=== PATIENT | female | born 1990 | race Caucasian/White ===

== ENCOUNTER 2018-12-09 13:49 | Emergency (ER) | payer OTHER ==
[~2018-12-09] VITALS: Ht 167.6 cm; Wt 12.1 kg
[~2018-12-09 13:49] MED LIST: CLIN-96 PO; FAMO-128 PO; HYDR-4383 PO; NAPR-996 PO; ONDA4TAB6 PO; ONDA8TAB9 PO; PANT-47 PO
[2018-12-09 14:04] VITALS: BP 148/85
[2018-12-09] MEDS ORDERED: TRAM50TA2 PO (15:27)
== END 2018-12-09 16:10 | disposition home or self-care (01) ==
LOC: ER 13:50
DX: S92.532A Displaced fracture of distal phalanx of left lesser toe(s), initial encounter for closed fracture (principal); G89.29 Other chronic pain; Z90.49 Acquired absence of other specified parts of digestive tract; Z90.89 Acquired absence of other organs; Z91.012 Allergy to eggs; Z88.8 Allergy status to other drugs, medicaments and biological substances; Z79.899 Other long term (current) drug therapy; W22.8XXA Striking against or struck by other objects, initial encounter; Y93.01 Activity, walking, marching and hiking; Y92.89 Other specified places as the place of occurrence of the external cause; Y99.8 Other external cause status
CPT/HCPCS: 73630; 99283

== ENCOUNTER 2018-12-19 11:02 | Emergency (ER) | payer OTHER ==
[~2018-12-19] VITALS: Ht 172.7 cm; Wt 110.0 kg
[~2018-12-19 11:02] MED LIST changes: +TRAM50TA2 PO
[2018-12-19 11:07] VITALS: BP 143/98
== END 2018-12-19 12:14 | disposition home or self-care (01) ==
LOC: ER 11:02
DX: S92.532D Displaced fracture of distal phalanx of left lesser toe(s), subsequent encounter for fracture with routine healing (principal); G89.29 Other chronic pain; Z90.49 Acquired absence of other specified parts of digestive tract; Z88.6 Allergy status to analgesic agent; Z91.012 Allergy to eggs; Z79.899 Other long term (current) drug therapy; W22.8XXD Striking against or struck by other objects, subsequent encounter
CPT/HCPCS: 99281

== ENCOUNTER 2025-01-01 12:32 | Emergency (ER) | payer OTHER ==
[~2025-01-01] VITALS: Ht 167.6 cm; Wt 84.1 kg
[~2025-01-01 12:32] MED LIST changes: -CLIN-96 PO; +CLIN-97 PO; +NAPR-1168 PO; -NAPR-996 PO; -TRAM50TA2 PO
[2025-01-01 12:50] VITALS: BP 139/92; PULSE 78; RESP 16; TEMP 98; O2SAT 95
--- NOTE | 2025-01-01 13:05 | Physician Documentation ---
History of Present Illness Chief Complaint: Abdominal Pain Stated Complaint: CONSTIPATION Primary Medical Doctor: Janet [facility] This is a 34-year-old female who presents with two weeks of constipation without vomiting or fever, patient reports last bowel movement was yesterday however it was very small, patient reports she is not passing much gas though is still passing gas. Patient describes abdominal pain as pressure and bloating. Medication Reconciliation Allergies: Coded Allergies: prednisone (Verified Allergy, Unknown, 12/09/18) egg (Verified Adverse Reaction, Unknown, n/v/belching, 04/14/15) Scheduled Bisacodyl (Bisacodyl), 1 SUPP RC DAILY Clindamycin HCL* (Clindamycin HCL*), 1 CAP PO Q6H Famotidine (Pepcid), 1 TABLET PO BID Ondansetron Hcl (Zofran), 1 TABLET PO Q8H Pantoprazole Sodium (PROTONIX tablet), 1 TABLET PO DAILY Polyethylene Glycol 3350 (Miralax), 17 GM PO DAILY Scheduled PRN Hydrocodone/Acetaminophen ([place] 5-325 Tablet), 1 TABLET PO TID PRN for pain Metoclopramide HCl (Reglan), 1 TAB PO Q8H PRN for nausea/vomiting Naproxen (Naproxen), 1 TABLET PO BID PRN for pain Ondansetron (Zofran Odt), 8 MG PO TID PRN PRN for nausea/vomiting Ondansetron Hcl (Zofran), 1 TABLET PO Q6H PRN for nausea/vomiting Past Medical History Past Medical History: Chronic Back Pain Past Surgical History: appendectomy, tonsillectomy Alcohol Use: None Drug Use: none Lives with: Father Occupation: student Review of Systems ROS Constipation and abdominal pain as stated above in the HPI, otherwise all systems are reviewed and negative. Physical Exam Vital Signs: Temperature: 98.0, Heart Rate: 78, Respiratory Rate: 16, BP: 139/92, Pulse Oximetry: 95, Weight: 84.090 Oxygen Flow Rate: 0 Physical Exam VITALS: Reviewed and as above. GENERAL: Alert, nontoxic appearing, no apparent distress. RESPIRATORY: No increased work of breathing, no respiratory distress, speaking in full clear sentences, clear lung sounds in all [place] CV: Regular rate and rhythm no murmur GI: Mild periumbilical tenderness to palpation otherwise nontender, soft, nondistended, no rebound, no guarding, bowel sounds present, no abdominal ecchymosis Progress Results/Orders Results/Orders Orders - NAMAN MORALES [employer] Urinalysis, Cult If Indicated (01/01/25 12:56) Hcg, Ur Ql (01/01/25 12:56) Cbc/Diff (01/01/25 12:56) BMP (01/01/25 12:56) Lipase (01/01/25 12:56) CMP (01/01/25 12:56) Vital Signs 01/01/25 12:50 Temp 98.0 Pulse 78 Resp 16 B/P (MAP) 139/92 Pulse Ox 95 O2 Flow Rate 0 EKG/XRAY/CT/US/VASC/MRI Abdominal X-Ray : Additional Comment Exam: DI ABDOMEN,SINGLE VIEW(KUB) Indication: Constipation and Abd Pain Comparison: None Technique: 2 radiographic views of the abdomen. Findings: Moderate volume colonic stool. Nonobstructive bowel gas pattern noted. There is no definite evidence for pneumoperitoneum. No abnormal calcifications noted. Impression: Nonobstructive bowel gas pattern noted. Moderate volume colonic stool. Electronically Signed by:JUAN HAGAN MD Date & Time: 01/01/25 8008 Dictated by: JUAN HAGAN MD Dictation date and time: 01/01/25 9305 I have reviewed and agree with the radiology report. I have reviewed and interpreted the imaging as: No air-fluid levels to suggest bowel obstruction Medical Decision Making Findings 34-year-old female presented with two weeks of constipation and mild periumbilical abdominal pain described as pressure and distention, physical exam did not demonstrate significant abdominal pain and no peritoneal signs, it is reassuring that bowel sounds were present, abdominal x-ray did not demonstrate evidence of bowel obstruction though was consistent with large stool burden and constipation. Patient reported feeling otherwise well and did reassuringly report having some passage of gas. I have low suspicion for bowel obstruction or other intra abdominal process, I suspect symptoms are from constipation. With shared decision-making patient would like to attempt treatment of constipation in the comfort of her own home, patient will be provided prescription for MiraLax and suppositories. As patient had reported some nausea an antiemetic with prokinetic properties was prescribed. Patient is otherwise well-appearing with benign physical exam and appropriate for outpatient follow up. Patient provided and understood careful return precautions. Patient provided and understood home care instructions and follow up instructions. Additionally reassuring patient does report follow up with primary care provider in the next week. Differential Dx:Considerations: Include: Appendicitis, Bowel obstruction, Cholangitis, Cholelithasis, Constipation, Diverticular disease, Gastritis/PUD, Gastroenteritis, Inflammatory BD, Ischemic bowel, Ovarian cyst/torsion, Urinary obstruction, Urinary tract infection, Urolithiasis Departure Disposition: HOME / SELF CARE / HOMELESS Impression: Primary Impression: Abdominal pain Qualified Codes: R10.33 - Periumbilical pain Condition: Improved Discharge Instructions: Constipation, Adult Additional Instructions: Please use the prescribed medications until you began having regular bowel movements, I recommend adding a fiber supplement such as Metamucil and increasing your fluid intake as well. You may use the prescribed Reglan as needed for nausea. Please follow up with your primary care provider in the next few days. Please return to the emergency department for any new or worsening concerning symptoms. Referrals: NO PRIMARY CARE PROVIDER (PCP) Prescriptions Metoclopramide HCl (Reglan) 10 Mg Tablet 1 TAB PO Q8H PRN for nausea/vomiting for 10 Days, #30 TAB 0 Refills before food and bedtime Prov: NAMAN MORALES 01/01/25 Bisacodyl (Bisacodyl) 10 Mg Supp.rect 1 SUPP RC DAILY for constipation for 4 Days, #4 SUPP 0 Refills Prov: NAMAN MORALES 01/01/25 Polyethylene Glycol 3350 (Miralax) 17 Gram/Dose Powder 17 GM PO DAILY for constipation for 7 Days, #119 GM 0 Refills dissolve in water Prov: NAMAN MORALES 01/01/25 Education Educated: Patient Educated regarding: diagnosis, treatment, prognosis, need for follow up Signature Scribe Signature: No scribe Attestation: The note accurately reflects work and decisions made by me.KATHERINE Isbell 01/01/25 21:26 NAMAN MORALES Jan 01, 2025 13:04
[2025-01-01 13:41] LABS: BASOPHILS % (AUTO) 0.6 % (0-1); EOSINOPHILS # (AUTO) 0.1 X10'3 (0-0.9); EOSINOPHILS % (AUTO) 1.1 % (0-6); HEMATOCRIT 43.5 % (35.0-45.0); HEMOGLOBIN 14.6 g/dl (12.0-16.0); LYMPHOCYTES # (AUTO) 2.5 X10'3 (1.1-4.8); LYMPHOCYTES % (AUTO) 37.5 % (21-51); MEAN CORPUSCULAR HEMOGLOBIN 28.7 PG (27.0-31.0); MEAN CORPUSCULAR HGB CONC 33.5 g/dL (33.0-36.5); MEAN CORPUSCULAR VOLUME 85.5 FL (78-98); MEAN PLATELET VOLUME 7.6 FL (7.4-10.4); MONOCYTES # (AUTO) 0.3 X10'3 (0-0.9); MONOCYTES % (AUTO) 5.3 % (2-12); NEUTROPHILS # (AUTO) 3.7 X10'3 (1.8-7.7); NEUTROPHILS % (AUTO) 55.5 % (42-75); PLATELET COUNT 291 X10'3 (140-440); RED BLOOD COUNT 5.08 X10'6 (4.20-5.60); RED CELL DISTRIBUTION WIDTH 14.5 % (11.5-14.5); WHITE BLOOD COUNT 6.6 X10'3 (4.5-11.0)
[2025-01-01 13:46] LABS: BILIRUBIN,URINE NEGATIVE (Neg); CLARITY,URINE CLEAR (Clear); COLOR,URINE YELLOW (Yellow); GLUCOSE, URINE NEGATIVE (Neg); KETONES,URINE NEGATIVE (Neg); LEUKOCYTE ESTERASE ,URINE NEGATIVE (Neg); NITRITES, URINE NEGATIVE (Neg); OCCULT BLOOD,URINE NEGATIVE (Neg); PH,URINE 6.5 (4.8-8.0); PROTEIN,URINE NEGATIVE (Neg); URINE HCG NEGATIVE (NEG); UROBILINOGEN,URINE 0.2 E.U/dL (0.2-1.0)
[2025-01-01 13:48] LABS: UA COLLECTION TYPE CLN CATCH MIDSTREAM
[2025-01-01 14:10] LABS: ALANINE AMINOTRANSFERASE 38 U/L (12-78); ALBUMIN/GLOBULIN RATIO 1.1 (1.1-1.5); ALKALINE PHOSPHATASE 88 IU/L (46-116); ANION GAP 8 (8-16); ASPARTATE AMINO TRANSFERASE 23 U/L (10-37); BILIRUBIN,TOTAL 0.7 MG/DL (0.1-1.0); BLOOD UREA NITROGEN 11 MG/DL (7-18); BUN/CREATININE RATIO 15.9 (10.0-20.0); CALCIUM 8.7 MG/DL (8.5-10.1); CHLORIDE 105 MMOL/L (99-107); CREATININE 0.69 MG/DL (0.40-0.90); GLUCOSE 87 MG/DL (70-104); LIPASE 37 U/L (16-77); POTASSIUM 3.9 MMOL/L (3.5-5.1); SODIUM 142 MMOL/L (135-145); TOTAL CARBON DIOXIDE 28.6 MMOL/L (24-32); TOTAL PROTEIN 7.5 G/DL (6.4-8.2); eCRCL 109 ML/MIN; eGFR > 90 ML/MIN
[2025-01-01] MEDS ORDERED: POLY119P2 PO (14:59)
[2025-01-01] MEDS ORDERED: BISA10SU11 RC (14:59)
--- NOTE | 2025-01-01 15:11 | RADIOLOGY REPORT ---
Exam: DI ABDOMEN,SINGLE VIEW(KUB) Indication: Constipation and Abd Pain Comparison: None Technique: 2 radiographic views of the abdomen. Findings: Moderate volume colonic stool. Nonobstructive bowel gas pattern noted. There is no definite evidence for pneumoperitoneum. No abnormal calcifications noted. Impression: Nonobstructive bowel gas pattern noted. Moderate volume colonic stool.
[2025-01-01] MEDS ORDERED: METO-292 PO (15:38)
[2025-01-01] MEDS: metoclopramide 10mg tablet PO ONE (15:41)
== END 2025-01-01 15:47 | disposition home or self-care (01) ==
LOC: ER 12:33
DX: K59.00 Constipation, unspecified (principal); Z88.8 Allergy status to other drugs, medicaments and biological substances; Z90.49 Acquired absence of other specified parts of digestive tract; Z90.89 Acquired absence of other organs
CPT/HCPCS: 36415; 74018; 80053; 81003; 81025; 83690; 85025; 99284

== ENCOUNTER 2025-03-23 10:10 | Emergency (ER) | payer OTHER ==
[~2025-03-23] VITALS: Ht 167.6 cm; Wt 91.8 kg
[~2025-03-23 10:10] MED LIST changes: +BISA10SU11 RC; +CLIN-224 PO; -CLIN-97 PO; +METO-292 PO; +POLY119P2 PO
[2025-03-23 10:34] VITALS: BP 154/104; PULSE 59; RESP 18; TEMP 97.3; O2SAT 97
--- NOTE | 2025-03-23 11:29 | RADIOLOGY REPORT ---
EXAM: DI FOOT, COMPLETE (3VW MIN) CLINICAL INDICATION: FOOT PAIN TECHNIQUE: DI FOOT, COMPLETE (3VW MIN) Comparison: None FINDINGS/IMPRESSION: There is no evidence of acute fracture or dislocation. The visualized joint space is well maintained. The alignment is anatomical. There is no radiopaque foreign body.
--- NOTE | 2025-03-23 13:03 | Physician Documentation ---
History of Present Illness ~ Chief Complaint: Foot pain Stated Complaint: R FOOT PAIN Time Seen by MD: 11:23 OK to notify your PCP?: Yes Primary Medical Doctor: [facility] Source: patient, RN/ HPI Patient is seen today with complaints of pain of her left foot. She states the pain is located on the plantar surface of her left foot at the MTP joint of the small toe. Patient states pain started few weeks ago and she thought she may have gotten something stuck in there she has been trying to dig out it without any relief. She has no other concern or complaint at this time. Tetanus witin 5 years: Yes Medication Reconciliation Allergies: Coded Allergies: prednisone (Verified Allergy, Unknown, 03/23/25) egg (Verified Adverse Reaction, Unknown, n/v/belching, 03/23/25) Scheduled Bisacodyl (Bisacodyl), 1 SUPP RC DAILY Clindamycin HCL* (Clindamycin HCL*), 1 CAP PO Q6H Famotidine (Pepcid), 1 TABLET PO BID Ondansetron Hcl (Zofran), 1 TABLET PO Q8H Pantoprazole Sodium (PROTONIX tablet), 1 TABLET PO DAILY Polyethylene Glycol 3350 (Miralax), 17 GM PO DAILY Scheduled PRN Hydrocodone/Acetaminophen ([place] 5-325 Tablet), 1 TABLET PO TID PRN for pain Metoclopramide HCl (Reglan), 1 TAB PO Q8H PRN for nausea/vomiting Naproxen (Naproxen), 1 TABLET PO BID PRN for pain Ondansetron (Zofran Odt), 8 MG PO TID PRN PRN for nausea/vomiting Ondansetron Hcl (Zofran), 1 TABLET PO Q6H PRN for nausea/vomiting Past Medical History Past Medical History: Chronic Back Pain Past Surgical History: appendectomy, tonsillectomy Alcohol Use: None Drug Use: none Lives with: Father Occupation: student Review of Systems Constitutional: Denies: chills, fever, weakness Eyes: Denies: pain, blurred vision ENT: Denies: ear pain, nose pain, throat pain, mouth pain Respiratory: Denies: cough, shortness of breath Cardiovascular: Denies: chest pain, palpitations Gastrointestinal: Denies: abdominal pain, nausea, vomiting Genitourinary: Denies: burning, dysuria Female Genitalia: Denies: vaginal discharge, pelvic pain Neurological: Denies: headache, dizziness Musculoskeletal: Denies: pain, swelling Integumentary: Denies: rash, lesions Allergic/Immunologic: Denies: hives, itching Hematologic/Lymphatic: Denies: no symptoms reported Psychiatric: Denies: depression, anxiety Physical Exam Vital Signs: Temperature: 97.3, Source: Oral, Heart Rate: 59, Respiratory Rate: 18, BP: 154/104, Pulse Oximetry: 97, Weight: 91.800 Oxygen Flow Rate: 0 Physical Exam General: Awake and Alert, no acute distress. HEENT: Conjunctiva pink, Sclera clear, Mucus Membranes moist. Neck: Supple without masses and tenderness. Resp: Unlabored. Lungs clear to auscultation bilaterally. Heart: Regular Rate and rhythm, normal S1 and S2 without murmur, rub or gallop. Musculoskeletal: Patient on exam has no sign of infection no erythema or induration or fluctuant mass. Patient does have skin lesion consistent with a corn of the 5th MTP joint plantar surface. She has no bony tenderness to pal pation and range of motion of the foot and ankle or unremarkable. Neurovascularly intact distally. Motor function and strength intact distally. Extremities: No cyanosis,clubbing or edema. Skin: Warm and Dry. Progress Results/Orders Results/Orders Vital Signs 03/23/25 10:34 Temp 97.3 Pulse 59 Resp 18 B/P (MAP) 154/104 Pulse Ox 97 O2 Flow Rate 0 Medical Decision Making Findings Patient is seen today with complaints of pain of her left foot. She states the pain is located on the plantar surface of her left foot at the MTP joint of the small toe. Patient states pain started few weeks ago and she thought she may have gotten something stuck in there she has been trying to dig out it without any relief. She has no other concern or complaint at this time. Patient did have x-ray of the left foot that showed no sign of fracture and was unremarkable and showed no sign of foreign body. Patient likely has a corn of her left foot and she will use corn pads and follow up with primary care for possible referral to Podiatry if needed. She will return to ED with any worsening, concerning or changing symptoms. Departure Disposition: 01 HOME / SELF CARE / HOMELESS Impression: Primary Impression: [place] of foot Condition: Stable Discharge Instructions: Corns and Calluses Additional Instructions: Patient did have x-ray of the left foot that showed no sign of fracture and was unremarkable and showed no sign of foreign body. Patient likely has a corn of her left foot and she will use corn pads and follow up with primary care for possible referral to Podiatry if needed. She will return to ED with any worsening, concerning or changing symptoms. Referrals: NO PRIMARY CARE PROVIDER (PCP) Signature Scribe Signature: No scribe Attestation: No scribe TG CHILDERS PAC Mar 23, 2025 13:03
== END 2025-03-23 13:15 | disposition home or self-care (01) ==
LOC: ER 10:10
DX: L84 Corns and callosities (principal); Z88.8 Allergy status to other drugs, medicaments and biological substances; Z90.49 Acquired absence of other specified parts of digestive tract; Z90.89 Acquired absence of other organs
CPT/HCPCS: 73630; 99283